=== PATIENT | male | born 1970 | race Caucasian/White ===

== ENCOUNTER 2020-03-31 02:39 | Observation (INO) | payer BC ==
[~2020-03-31] VITALS: Ht 175.3 cm; Wt 68.0 kg
[~2020-03-31 02:39] MED LIST: ACETAMINOPHEN-1 EAC1 PO; CIPROFLOXACIN500 M1 PO; FLEXERIL PO; HYDROCODONE-AP1 EAC6 PO; IBUPROFEN 800800 M1 PO; LIPITOR10 MG PO; MEDROLDOSEPACK PO; MOBIC7.5 MG PO; PERCOCET 5-3251 EACH PO; SIMVASTATIN20 MG PO
[2020-03-31 02:51] VITALS: BP 130/43
[2020-03-31] MEDS ORDERED: ZOCOR40 MG PO (02:53)
[2020-03-31 03:09] LABS: ABSOLUTE BASOPHILS 0.1 thou/uL (0.0-0.2); ABSOLUTE EOSINOPHILS 0.3 thou/uL (0.0-0.7); ABSOLUTE LYMPHOCYTES 4.9 thou/uL (0.8-5.3); ABSOLUTE MONOCYTES 0.4 thou/uL (0.0-1.2); ABSOLUTE NEUTROPHILS 6.6 thou/uL (1.6-8.1); BASOPHILS 0.5 %; EOSINOPHILS 2.5 %; HEMATOCRIT 48.7 % (42.0-52.0); HEMOGLOBIN 16.3 gm/dL (14.0-18.0); MCH 30.3 pg (26.0-34.0); MCHC 33.6 g/dL (28.0-37.0); MCV 90.2 fL (80.0-100.0); MONOCYTES 3.3 %; MPV 8.9 fl. (7.2-11.1); NUCLEATED RBCS 0 /100WBC; PLATELET COUNT* 267 thou/uL (150-400); POLYS 53.7 %; RDW-CV 12.8 % (10.5-14.5); WBC 12.2 thou/uL (4.0-11.0)
[2020-03-31 03:24] LABS: APTT 24.8 Seconds (25.0-31.3); CALCIUM 8.4 mg/dL (8.5-10.1); POTASSIUM 3.8 mmol/L (3.5-5.1)
[2020-03-31 03:35] LABS: ALBUMIN 3.4 g/dL (3.4-5.0); TOTAL BILIRUBIN 0.2 mg/dL (<0.1-1.0); TOTAL PROTEIN 6.5 g/dL (6.4-8.2)
[2020-03-31 06:30] VITALS: BP 106/58
[2020-03-31 08:00] VITALS: BP 131/63
[2020-03-31 09:43] VITALS: BP 131/63
--- NOTE | 2020-04-01 13:47 | EKG ---
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: [place] : [id number] Requested By: Nicole Red Order Number: [id number] MD: Damion Cummins Measurements Intervals [place] Rate: 96 P: 75 VA: 158 QRS: 75 QRSD: 86 T: -16 QT: 354 QTc: 448 Interpretive Statements Sinus rhythm Borderline repolarization abnormality No previous ECG available for comparison Electronically Signed On 04-01-2020 13:46:51 SURVEILLANCE TECHNICIAN by Damion Cummins [email or web address] <ELECTRONICALLY SIGNED> By: Damion Cummins MD, [facility] 04/01/20 1346 0242 024 Damion Cummins MD, [facility] /EPI
== END 2020-03-31 11:25 | disposition home or self-care (01) ==
LOC: M.ERS 02:39 → M.TBA-ER 05:22 → M.2W 06:39
PROVIDERS: Personal Emergency Response Attendant; ADMIT Family Medicine; ATTEND Family Medicine
DX: R55 Syncope and collapse (principal); R07.89 Other chest pain; K21.9 Gastro-esophageal reflux disease without esophagitis; E78.5 Hyperlipidemia, unspecified; L29.9 Pruritus, unspecified; F17.210 Nicotine dependence, cigarettes, uncomplicated; Z79.899 Other long term (current) drug therapy; Z20.828 Contact with and (suspected) exposure to other viral communicable diseases